=== PATIENT | male | born 1970 | race Caucasian/White ===

== ENCOUNTER 2018-03-06 10:08 | Emergency (ER) | payer BC ==
[~2018-03-06] VITALS: Ht 188 cm; Wt 79.4 kg
[2018-03-06 10:55] VITALS: BP 145/74
--- NOTE | 2018-03-06 11:13 | NUR ---
Pt eloped from ED
== END 2018-03-06 11:13 | disposition left against medical advice (07) ==
LOC: ER 10:12
DX: Z53.21 Procedure and treatment not carried out due to patient leaving prior to being seen by health care provider (principal)
CPT/HCPCS: A4606; Z7610